=== PATIENT | female | born 1950 | race Caucasian/White ===

== ENCOUNTER 2025-02-07 10:15 | Emergency (ER) | payer MEDICARE, BC ==
[~2025-02-07] VITALS: Ht 152.4 cm; Wt 51.5 kg
[2025-02-07 10:18] VITALS: BP 152/70; TEMP 97.1; O2SAT 97
[2025-02-07] MEDS: PROPARACAINE 0.5% OPHTH SOL 15ML OD ONE (11:05)
[2025-02-07] MEDS ORDERED: CEPH500C PO (11:28)
== END 2025-02-07 11:37 | disposition home or self-care (01) ==
LOC: M ED 10:15
DX: H00.022 Hordeolum internum right lower eyelid (principal); Z88.1 Allergy status to other antibiotic agents; Z88.8 Allergy status to other drugs, medicaments and biological substances; Z79.2 Long term (current) use of antibiotics